=== PATIENT | male | born 1960 | race Caucasian/White ===

== ENCOUNTER 2023-10-03 12:08 | Outpatient (RCR) | payer BC, SELFPAY | END 2023-10-03 23:59 | disposition home or self-care (01) | LOC: RPT 12:08 | PROVIDERS: ATTENDING PHYSICIAN Orthopaedic Surgery; FAMILY PHYSICIAN Family Medicine | DX: Z47.89 Encounter for other orthopedic aftercare (principal); M62.81 Muscle weakness (generalized) (principal); Z98.1 Arthrodesis status; Z73.6 Limitation of activities due to disability; R26.2 Difficulty in walking, not elsewhere classified; M54.2 Cervicalgia; G62.9 Polyneuropathy, unspecified; M43.22 Fusion of spine, cervical region | CPT/HCPCS: 97110; 97112 ==

== ENCOUNTER 2023-11-08 15:35 | Outpatient (RCR) | payer BC, SELFPAY | END 2023-11-08 23:59 | disposition home or self-care (01) | LOC: RPT 15:35 | PROVIDERS: ATTENDING PHYSICIAN Orthopaedic Surgery; FAMILY PHYSICIAN Family Medicine | DX: M62.81 Muscle weakness (generalized) (principal); Z73.6 Limitation of activities due to disability; R26.2 Difficulty in walking, not elsewhere classified; R20.0 Anesthesia of skin; M54.2 Cervicalgia; M43.22 Fusion of spine, cervical region; G62.9 Polyneuropathy, unspecified | CPT/HCPCS: 97110; 97112 ==

== ENCOUNTER 2023-12-06 15:10 | Outpatient (RCR) | payer BC, SELFPAY | END 2023-12-06 23:59 | disposition home or self-care (01) | LOC: RPT 15:10 | PROVIDERS: ATTENDING PHYSICIAN Orthopaedic Surgery; FAMILY PHYSICIAN Family Medicine | DX: Z47.89 Encounter for other orthopedic aftercare (principal); Z73.6 Limitation of activities due to disability; R26.2 Difficulty in walking, not elsewhere classified; M54.2 Cervicalgia; M62.81 Muscle weakness (generalized); G62.9 Polyneuropathy, unspecified; M43.22 Fusion of spine, cervical region | CPT/HCPCS: 97110; 97112 ==

== ENCOUNTER 2024-01-03 15:16 | Outpatient (RCR) | payer BC, SELFPAY | END 2024-01-03 23:59 | disposition home or self-care (01) | LOC: RPT 15:16 | PROVIDERS: ATTENDING PHYSICIAN Orthopaedic Surgery; FAMILY PHYSICIAN Family Medicine | DX: Z47.89 Encounter for other orthopedic aftercare (principal); Z73.6 Limitation of activities due to disability; R26.2 Difficulty in walking, not elsewhere classified; M54.2 Cervicalgia; M62.81 Muscle weakness (generalized); G62.9 Polyneuropathy, unspecified; M43.22 Fusion of spine, cervical region | CPT/HCPCS: 97110; 97112 ==

== ENCOUNTER 2024-02-06 16:20 | Outpatient (RCR) | payer BC, SELFPAY | END 2024-02-06 23:59 | disposition home or self-care (01) | LOC: RPT 16:20 | PROVIDERS: ATTENDING PHYSICIAN Orthopaedic Surgery; FAMILY PHYSICIAN Family Medicine | DX: M62.81 Muscle weakness (generalized) (principal); Z73.6 Limitation of activities due to disability; R26.2 Difficulty in walking, not elsewhere classified; R20.0 Anesthesia of skin; M54.2 Cervicalgia; M43.22 Fusion of spine, cervical region; G62.9 Polyneuropathy, unspecified | CPT/HCPCS: 97110; 97112 ==

== ENCOUNTER → 2024-02-07 20:40 | Outpatient (REF) | payer BC, SELFPAY | LOC: MRI 20:40 | PROVIDERS: ATTENDING PHYSICIAN Psychiatry & Neurology Neurology; FAMILY PHYSICIAN Family Medicine | DX: M54.50 Low back pain, unspecified (principal) | CPT/HCPCS: 72148 ==

== ENCOUNTER 2024-02-21 14:26 | Outpatient (RCR) | payer BC, SELFPAY | END 2024-02-21 23:59 | disposition home or self-care (01) | LOC: RPT 14:26 | PROVIDERS: ATTENDING PHYSICIAN Orthopaedic Surgery; FAMILY PHYSICIAN Family Medicine | DX: M62.81 Muscle weakness (generalized) (principal); Z73.6 Limitation of activities due to disability; R26.2 Difficulty in walking, not elsewhere classified; M54.2 Cervicalgia; G62.9 Polyneuropathy, unspecified; M43.22 Fusion of spine, cervical region | CPT/HCPCS: 97110; 97112 ==

== ENCOUNTER → 2024-10-18 16:58 | Outpatient (REF) | payer BC, SELFPAY | LOC: PAVMRI 16:58 | PROVIDERS: ATTENDING PHYSICIAN Physician Assistant Surgical; FAMILY PHYSICIAN Family Medicine | DX: M96.1 Postlaminectomy syndrome, not elsewhere classified (principal); M54.12 Radiculopathy, cervical region | CPT/HCPCS: 72141 ==

== ENCOUNTER → 2025-04-09 17:37 | Outpatient (REF) | payer BC, SELFPAY | LOC: MRI 17:37 | PROVIDERS: ATTENDING PHYSICIAN Orthopaedic Surgery; FAMILY PHYSICIAN Family Medicine | DX: M48.02 Spinal stenosis, cervical region (principal); M54.12 Radiculopathy, cervical region | CPT/HCPCS: 72141 ==

== ENCOUNTER → 2025-08-08 17:18 | Outpatient (REF) | payer BC, SELFPAY | LOC: PAVMRI 17:18 | PROVIDERS: ATTENDING PHYSICIAN Specialist; FAMILY PHYSICIAN Family Medicine | DX: G56.22 Lesion of ulnar nerve, left upper limb (principal) | CPT/HCPCS: 73221 ==